=== PATIENT | male | born 1955 | race Caucasian/White ===

== ENCOUNTER 2017-08-26 09:37 | Emergency (ER) | payer MEDICAID ==
[~2017-08-26] VITALS: Ht 185.4 cm; Wt 88.0 kg
[2017-08-26] MEDS ORDERED: SODIUM CHLORIDE 0.9% 1,000 ML IV ONE (10:28)
[2017-08-26] MEDS ORDERED: KETOROLAC TROMETH 30 MG/ML 1ML VIAL IV ONE (10:30)
[2017-08-26 10:40] VITALS: BP 124/87
[2017-08-26 10:57] LABS: Basophils # (auto) 0 uL; Basophils % (auto) 1.1 % (0.0-2.0); Eosinophils # (auto) 0.2 uL; Hemoglobin 15.3 g/dL (13.5-17.5); Lymphocytes # (auto) 1.6 uL; Lymphocytes % (auto) 35.9 % (10.0-50.0); Mean Corpuscular Hemoglobin 32.6 pg (28.0-32.0); Mean Corpuscular Volume 95.7 fL (80.0-100.0); Mean Platelet Volume 7.9 fL (6.9-10.8); Monocytes # (auto) 0.4 uL; Monocytes % (auto) 9.8 % (0.0-12.0); Neutrophils # (auto) 2.1 uL; Neutrophils % (auto) 48.2 % (37.0-80.0); Nucleated Red Blood Cells % 0.1 %; Platelet Count (auto) 176 10^3/uL (140-450); White Blood Cell 4.4 10^3/uL (4.4-10.8)
[2017-08-26 10:58] LABS: Urine Bilirubin Negative (Negative); Urine Blood Negative /uL (Negative); Urine Color Yellow (Yellow); Urine Glucose Normal (Normal); Urine Ketone Negative (Negative); Urine Mucus FEW (None Seen); Urine Nitrite Negative (Negative); Urine RBC None Seen /hpf (0 - 3); Urine Urobilinogen Normal (Negative); Urine pH 6.5 (5.0-8.0)
[2017-08-26 11:16] LABS: Albumin 4.2 g/dL (3.4-5.0); Alkaline Phosphatase 56 U/L (45-117); Anion Gap 7 (5-15); Aspartate Aminotransferase 32 U/L (15-37); BUN/Creatinine Ratio 11.5; Bilirubin, Total 0.8 mg/dL (0.2-1.0); Blood Urea Nitrogen 12 mg/dL (7-18); Calcium 9.1 mg/dL (8.5-10.1); Carbon Dioxide 27 mmol/L (21-32); Chloride 105 mmol/L (98-107); GFR African American 93 mL/min; GFR Non-African American 77 mL/min; Glucose 102 mg/dL (74-106); Potassium 4.4 mmol/L (3.5-5.1); Sodium 139 mmol/L (136-145); Total Protein 7.3 g/dL (6.4-8.2)
== END 2017-08-26 12:02 | disposition home or self-care (01) ==
LOC: ER 09:37 → EDSEX 09:37 → ER 12:02
DX: N28.1 Cyst of kidney, acquired (principal); E78.5 Hyperlipidemia, unspecified
CPT/HCPCS: 36415; 74176; 80053; 81001; 84484; 85025; 93005; 96361; 96374; 99285; J1885; J7030

== ENCOUNTER 2017-08-31 09:33 | Emergency (ER) | payer MEDICAID ==
[~2017-08-31] VITALS: Ht 185.4 cm; Wt 88.5 kg
[2017-08-31 15:54] VITALS: BP 112/78
== END 2017-08-31 16:24 | disposition home or self-care (01) ==
LOC: ER 09:33
DX: R10.9 Unspecified abdominal pain (principal); E78.5 Hyperlipidemia, unspecified
CPT/HCPCS: 76775; 93005

== ENCOUNTER 2024-03-05 06:05 | Inpatient (IN) | payer OTHER ==
[~2024-03-05] VITALS: Ht 182.9 cm; Wt 98.6 kg
[~2024-03-05 06:05] MED LIST: ATOR-507 PO; GABA-1250 PO; ROPI3TAB PO
[2024-03-05] MEDS: ceFAZolin 2 GM/D5W50ml 50 ML IV ONE (06:19)
[2024-03-05] MEDS: TRANEXAMIC ACID 20 ML ONE (06:23)
[2024-03-05] MEDS: LIDOCAINE 2% JELLY 11ml (GLYDO) ONE (06:23)
[2024-03-05] MEDS: levoFLOXacin 750MG 150 ML IV ONE (06:45)
[2024-03-05] MEDS ORDERED: LIDOCAINE 1% INJ PF 5ML AMP ONE (06:51)
[2024-03-05] MEDS ORDERED: HYDROmorphone HCL 2 MG/ML VL/or syr ONE (07:13)
[2024-03-05] MEDS ORDERED: fentaNYL CITRATE 100 MCG/2 ML VL ONE (07:14)
[2024-03-05] MEDS ORDERED: MIDAZOLAM HCL 2MG/2ML 2ml VIAL (1mg/ml) ONE (07:14)
[2024-03-05] MEDS ORDERED: PROPOFOL 10 MG/ML 20 ML IV ONE (07:14)
[2024-03-05] MEDS ORDERED: DexAMETHasone SOD PHOS 10MG/1ML VIAL INJ ONE (07:14)
[2024-03-05] MEDS: LIDOCAINE W/ EPINEPHRINE 1% 20ML VIAL ONE (08:46)
[2024-03-05] MEDS ORDERED: MORPHINE SULFATE 4 MG/ML SYR/VIAL IV PRN (10:00)
[2024-03-05] MEDS ORDERED: MIDAZOLAM HCL 2MG/2ML 2ml VIAL (1mg/ml) IV PRN (10:00)
[2024-03-05] MEDS ORDERED: HYDROmorphone HCL 2 MG/ML VL/or syr IV PRN (10:00)
[2024-03-05] MEDS ORDERED: LABETALOL HCL 5 MG/ML 4ML SYRINGE IV PRN (10:00)
[2024-03-05] MEDS: ONDANSETRON HCL 4 MG/2 ML VIAL IV ONE (10:00)
[2024-03-05] MEDS ORDERED: ePHEDrine SULFATE 50 MG/ML AMP IV PRN (10:00)
[2024-03-05] MEDS ORDERED: ONDANSETRON HCL 4 MG/2 ML VIAL IV PRN (11:45)
[2024-03-05] MEDS ORDERED: ceFAZolin 1GM/50ML 50 ML IV SCH ×2 (11:45→14:00)
[2024-03-05] MEDS ORDERED: NITROGLYCERIN 0.4 MG SL TAB SL PRN (11:45)
[2024-03-05 12:04] VITALS: O2SAT 100
[2024-03-05 15:15] VITALS: BP 129/79; PULSE 87; RESP 17; TEMP 97.4; O2SAT 96
[2024-03-05 15:30] VITALS: BP 129/79; PULSE 87; RESP 17; TEMP 97.4; O2SAT 96
[2024-03-05] MEDS: ceFAZolin 1GM/50ML 50 ML IV SCH (16:24)
[2024-03-05] MEDS: CYCLOBENZAPRINE HCL 10 MG TAB PO SCH (16:24)
[2024-03-05] MEDS: D5W/SOD CHLO 0.9% 1,000 ML IV SCH (16:24)
[2024-03-05 16:47] VITALS: BP 123/71; PULSE 85; RESP 18; TEMP 97.3; O2SAT 94
[2024-03-05] MEDS: HYDROcodone-ACET 10/325MG TAB PO PRN (19:39)
[2024-03-05 20:00] VITALS: PULSE 89; PULSE 93; RESP 18; O2SAT 94
[2024-03-05 21:00] VITALS: BP 110/65; PULSE 89; RESP 18; TEMP 98.1; O2SAT 94
[2024-03-05] MEDS: DOCUSATE SOD 100 MG CAP PO SCH (22:00)
[2024-03-05] MEDS: ROPINIROLE HYDROCHLORIDE 3 MG PO SCH (22:00)
[2024-03-05] MEDS: ATORVASTATIN 20 MG TAB PO SCH (22:20)
[2024-03-05] MEDS: GABAPENTIN 300 MG CAP PO SCH (22:24)
[2024-03-06] VITALS (7 sets, daily range): BP systolic 99–111; BP diastolic 52–72; PULSE 57–103; RESP 16–21; TEMP 97.4–100.4; O2SAT 92–97
[2024-03-06] MEDS: MORPHINE SULFATE INJ 2 MG/ml SYRG IV PRN (10:27)
[2024-03-06] MEDS: ACETAMINOPHEN 325 MG TAB PO PRN (22:47)
[2024-03-07] VITALS (8 sets, daily range): BP systolic 93–130; BP diastolic 46–60; PULSE 73–107; RESP 14–22; TEMP 97.7–100.5; O2SAT 90–98
[2024-03-08] VITALS (8 sets, daily range): BP systolic 108–154; BP diastolic 42–68; PULSE 73–90; RESP 18–20; TEMP 98.1–99.6; O2SAT 93–99
[2024-03-08] MEDS: MORPHINE SULFATE INJ 2 MG/ml SYRG IV PRN ×2 (14:32)
[2024-03-09] VITALS (7 sets, daily range): BP systolic 102–121; BP diastolic 51–73; PULSE 63–96; RESP 18–20; TEMP 97.9–98.4; O2SAT 92–95
[2024-03-09] MEDS: CARISOPRODOL 350 MG TAB PO SCH (13:35)
== END 2024-03-09 18:00 | disposition home health service (06) | DRG 457 ==
LOC: SUR 06:05 → TELE 11:43 → TELE-CENTR 15:14
PROVIDERS: ADMIT Internal Medicine; ATTEND Internal Medicine
PROC: 01NB0ZZ Release Lumbar Nerve, Open Approach (ICD-10-PCS; 2024-03-05)
PROC: 00NY0ZZ Release Lumbar Spinal Cord, Open Approach (ICD-10-PCS; 2024-03-05)
PROC: 4A11X4G Monitoring of Peripheral Nervous Electrical Activity, Intraoperative, External Approach (ICD-10-PCS; 2024-03-05)
PROC: 0SG1071 Fusion of 2 or more Lumbar Vertebral Joints with Autologous Tissue Substitute, Posterior Approach, Posterior Column, Open Approach (ICD-10-PCS; principal; 2024-03-05 07:24)
DX: M48.061 Spinal stenosis, lumbar region without neurogenic claudication (principal); M51.06 Intervertebral disc disorders with myelopathy, lumbar region; M41.56 Other secondary scoliosis, lumbar region; M43.16 Spondylolisthesis, lumbar region; M51.16 Intervertebral disc disorders with radiculopathy, lumbar region; E78.5 Hyperlipidemia, unspecified; G25.81 Restless legs syndrome; G62.9 Polyneuropathy, unspecified; G89.29 Other chronic pain; Z79.899 Other long term (current) drug therapy
CPT/HCPCS: 72100; 76000; 86850; 86900; 86901; 97110; 97116; 97163; G0378; J1100; J2250; J2704; J7042